=== PATIENT | female | born 1980 | race Caucasian/White ===

== ENCOUNTER → 2019-01-07 | Outpatient (CLI) | payer OTHER ==
--- NOTE | 2019-01-11 07:36 | MM ---
Reason for exam: clinical finding. Last mammogram was performed 4 years and 3 months ago. Indicated problem(s): lump or thickening and pain in the left breast. Physical Findings: Nurse Summary: 3cm nodule in the left breast at 3 o'clock (nurse mj). MG 3D Diag Mammo W/Cad ANTIONE Bilateral CC and MLO view(s) were taken. Prior study comparison: October 07, 2014, bilateral MG diagnostic mammo w CAD ANTIONE. June 02, 2013, bilateral digital screening mammo w/CAD. The breast tissue is heterogeneously dense. This may lower the sensitivity of mammography. No suspicious calcifications are seen. Focal asymmetry upper outer left breast. Ultrasound recommended. These results were verbally communicated with the patient and result sheet given to the patient on 01/07/19. ASSESSMENT: Incomplete: need additional imaging evaluation, BI-RAD 0 RECOMMENDATION: Ultrasound of the left breast.
--- NOTE | 2019-01-11 07:38 | USB ---
Reason for exam: additional evaluation requested from abnormal screening. US Breast LT Left complete breast ultrasound includes all four quadrants, the retroareolar region and axilla. Finding demonstrates a 0.4 x 0.3 x 0.5cm lesion at 2 o'clock and a 2.1 x 1.3 x 2.2cm mixed lesion at 2 o'clock for which a biopsy is recommended. These results were verbally communicated with the patient and result sheet given to the patient on 01/07/19. ASSESSMENT: Suspicious, BI-RAD 4 RECOMMENDATION: Ultrasound core biopsy of the left breast. Called Dr. Mortensen's office with mammographic findings and has scheduled an appointment for the patient for 02/04/19 at 9:[address] Feliciano. Biopsy scheduled for 01/20/19 at 8:00. PRELIMINARY REPORT CALLED AND FAXED TO DR. FELICIANO ON 01/11/19.
== END | disposition home or self-care (01) ==
LOC: RADMAMWWP 13:37
PROVIDERS: ATTEND Obstetrics & Gynecology
DX: R92.8 Other abnormal and inconclusive findings on diagnostic imaging of breast (principal); N64.4 Mastodynia
CPT/HCPCS: 77062; 77066

== ENCOUNTER → 2019-01-20 | Day surgery (SDC) | payer OTHER ==
[2019-01-20 07:19] VITALS: BP 110/70; PULSE 86; RESP 12; TEMP 97.9
--- NOTE | 2019-01-20 09:00 | USB ---
EXAMINATION TYPE: US discontinued breast bx LT DATE OF EXAM: 01/20/2019 8:14 AM CLINICAL HISTORY: Abnormal left breast ultrasound dated 01/07/2019 TECHNIQUE: Targeted ultrasound was performed of the left breast of the lateral half with attention to the 2:00 position. COMPARISON: Left breast ultrasound dated 01/07/2019. FINDINGS: Repeat imaging of the left breast particular attention to the 2:00 position demonstrates no focal mass. It is noted patient was on antibiotic therapy for a recent left breast mastitis with imp rovement clinically. It is suspected that the previously seen 2.2 cm mixed area at the 2:00 position related to dense breast tissue and edematous change from the mastitis at the time of initial scan. Th is finding persists on today's examination. Precautionary follow-up ultrasound will be performed in 3 months for reassessment. Findings and recommendation were discussed with the patient at the time of imaging. IMPRESSION: BI-RADS 3-probably benign. Three-month targeted left breast ultrasound will be performed.
== END | disposition home or self-care (01) ==
LOC: RADUSWWP 07:05
PROVIDERS: ATTEND Surgery
DX: R92.8 Other abnormal and inconclusive findings on diagnostic imaging of breast (principal)

== ENCOUNTER → 2019-04-23 | Outpatient (CLI) | payer BC ==
--- NOTE | 2019-04-23 12:48 | USB ---
Reason for exam: follow-up at short interval from prior study. History: US discontinued breast bx LT of the left breast, January 20, 2019. Physical Findings: Nurse did not find any significant physical abnormalities on exam. US Breast Limited LT Left limited breast ultrasound including focal area of concern, retroareolar and axilla demonstrates no cystic or solid lesion seen. These results were verbally communicated with the patient and result sheet given to the patient on 04/23/19. ASSESSMENT: Negative, BI-RAD 1 RECOMMENDATION: Routine screening mammogram of both breasts in 8 months. Back on schedule for December 2019.
== END | disposition home or self-care (01) ==
LOC: RADUSWWP 10:21
PROVIDERS: ATTEND Surgery
DX: R92.8 Other abnormal and inconclusive findings on diagnostic imaging of breast (principal)